=== PATIENT | male | born 1980 | race Caucasian/White ===

== ENCOUNTER 2018-01-17 15:48 | Emergency (ER) | payer BC, SELFPAY ==
[2018-01-17 15:49] VITALS: BP 128/87; PULSE 66; RESP 16; TEMP 36.9; O2SAT 96; BMI 24.3
--- NOTE | 2018-01-17 16:26 | ED.DCSUM_ITS ---
- ER Visit Summary Date of Service: 01/17/18 Chief Complaint: [] Sore throat History of Present Illness: The patient is a 37 M [] complaining of throat discomfort after eating very hot refried beans for which he feels he burned his throat. He reports not seeing a medical provider after the reported injury 6 days ago. Reports he is able to tolerate drinking fluids. Reports for the past several days she has been eating Jell-O and milk and foods that do not irritate his throat. Denies difficulty breathing, taking fluids. Patient is conversational. Denies fevers. Denies neck pain. Physical Examination: [] Afebrile, vital signs stable. Patient is conversational. HEENT reveals moist mucous members without any obvious oropharyngeal erythema or onofre. Remainder of exam is unremarkable. Test Results: [] None. Emergency Department Course and Treatment: [] Follow-up with PCP. Patient provided Decadron orally 1 time in the emergency department, 8 mg. He was encouraged to avoid hot or difficult to swallow foods. Treatment Plan: [] Follow-up with PCP. Avoid irritating or hot foods. Disposition: [] Discharge, stable Impression: [] Pharyngitis This note was generated with [employer] dictation software. It may contain incorrect words, spelling, and punctuation that were not noted in review of the chart prior to signing ED Disposition - Plan for ED Patient: Chief Complaint: Sore Throat Referrals: Derek Jarrell MD [Primary Care Provider] -
--- NOTE | 2018-01-17 16:26 | ED.DEP ---
ED Disposition - Plan for ED Patient: Disposition: Home or Assisted Living Chief Complaint: Sore Throat Instructions: Self-Care for Sore Throats Referrals: Derek Jarrell MD [Primary Care Provider] -
[2018-01-17 16:44] VITALS: BP 128/87; RESP 17
== END 2018-01-17 16:45 | disposition home or self-care (01) ==
PROVIDERS: Emergency Provider Emergency Medicine; Family Provider Family Medicine; PCP Family Medicine
DX: J02.9 Acute pharyngitis, unspecified (principal)
CPT/HCPCS: 99283

== ENCOUNTER 2020-04-08 09:48 | Emergency (ER) | payer BC, SELFPAY ==
[2020-04-08 09:50] VITALS: BP 142/83; PULSE 57; RESP 17; TEMP 36.2; O2SAT 98; BMI 27.8
--- NOTE | 2020-04-08 10:01 | ED.DCSUM_ITS ---
History of Present Illness Informant: Patient - Abdominal Pain/Flank Pain Onset: Today Context: Sudden Onset Timing: Intermittent Quality: Cramping Location: Diffuse Current Severity: Mild Maximum Severity: Severe Worsened by: Nothing Relieved by: Nothing - Nausea/Vomiting/Emesis GI Symptom: Nausea. Negative for: Vomiting - Diarrhea/Melena/Hematochezia GI Symptom: Diarrhea Onset: Today Stool Quality: Loose, Watery Severity: Severe Episodes: 2 Associated Symptoms: Negative for: Dysuria, Frequency, Hematuria, Urgency Narrative: 39-year-old male presents to the emergency department with abdominal pain and diarrhea. Patient woke up about 5 hours ago in the middle of the night with abdominal pain that he describes as bilateral lower cramping and has had 2 episodes of loose watery diarrhea. Nausea but no vomiting. No melena or hematochezia. No fevers. No back pain. Urinating normally. No history of similar symptoms. No sick contacts. No recent antibiotic use or travel. He did eat out last night. He denies any history of gastrointestinal disorders. He thinks his mom has Crohn's disease. Prior similar symptoms: No Recent Illness/Hospitalization: No <Hi Ying - Last Filed: 04/08/20 11:24> <Bubba Goldberg - Last Filed: 04/08/20 12:46> Chief Complaint: Diarrhea Past Medical History Prior records reviewed: Yes Past Medical History: None Surgical History: no surgical history Lives: Alone Smoking Status: Never smoker <Hi Ying - Last Filed: 04/08/20 11:24> <Bubba Goldberg - Last Filed: 04/08/20 12:46> - Allergies and Home Meds Allergies/Adverse Reactions: Allergies No Known Allergies Allergy (Verified 04/08/20 09:49) Primary Care Physician: Alexandra Wise MD [STAFF PHYSICIAN] - 3-5 Days Review of Systems All systems negative except as indicated General: Denies: Chills, Fever, Sweats Eyes: Denies: Visual changes - bilaterally, Diplopia ENT: Denies: Rhinorrhea, Sore throat Cardiovascular: Denies: Chest pain, Palpitations Respiratory: Denies: Dyspnea, Cough, Dyspnea on exertion Gastrointestinal: Reports: Abdominal pain, Nausea, Diarrhea. Denies: Vomiting, Constipation, Melena, Hematochezia Genitourinary: Denies: Dysuria, Hematuria, Frequency Musculoskeletal: Denies: Back pain, Extremity Pain Skin: Denies: Rash, Wounds Neurological: Denies: Headache, Weakness, Numbness <StepanHi - Last Filed: 04/08/20 11:24> Physical Exam Vital Signs/Narrative: Vital Signs Temp Pulse Resp BP Pulse Ox 04/08/20 09:50 97.2 F L 57 L 17 142/83 H 98 Inital Vital Signs reviewed: Yes General: Well nourished, Well developed, No Acute Distress Head: Normocephalic, Atraumatic Eyes: Perrl, EOMI ENT: Moist mucous membranes, No rhinorrhea Neck: Supple, Nontender Cardiovascular: Regular rate, Regular rhythm, No murmurs Respiratory: No distress, CTA bilaterally, Chest nontender Abdomen: Soft, Nontender, Nondistended, Normal bowel sounds Back: Nontender, Normal Inspection Extremities: Nontender, No edema Skin: Normal color, No rash Neurological: Alert, Oriented x3, Cranial nerves II-XII grossly intact, Normal Strength, Normal Sensation Psychological: Normal affect, Normal Mood <Shayna Yingony - Last Filed: 04/08/20 11:24> Vital Signs/Narrative: Vital Signs Temp Pulse Resp BP Pulse Ox 04/08/20 09:50 97.2 F L 57 L 17 142/83 H 98 <Bubba Goldberg - Last Filed: 04/08/20 12:46> Diagnostic/Tx/Re-eval Laboratory Results 04/08/20 04/08/20 10:15 10:15 WBC 6.1 RBC 5.30 Hgb 15.2 Hct 47.4 MCV 89.4 MCH 28.7 MCHC 32.1 RDW Std Deviation 41.2 RDW Coeff of Brenda 12.6 Plt Count 206 MPV 10.3 Immature Gran % (Auto) 0.300 Neut % (Auto) 59.6 Lymph % (Auto) 26.3 Arroyo % (Auto) 9.7 Eos % (Auto) 3.4 Baso % (Auto) 0.7 Absolute Neuts (auto) 3.6 Absolute Lymphs (auto) 1.60 Nucleated RBC % 0 Sodium 139 Potassium 3.8 Chloride 109 H Carbon Dioxide 26.0 Anion Gap 4 L BUN 13 Creatinine 0.81 Estim Creat Clear Calc 114.47 Est GFR (MDRD) Af Amer 137 Est GFR (MDRD) Non-Af 113 BUN/Creatinine Ratio 16.1 Glucose 101 Calcium 8.8 Total Bilirubin 0.30 AST 21 ALT 36 Alkaline Phosphatase 82 Total Protein 7.4 Albumin 3.8 Globulin 3.6 Albumin/Globulin Ratio 1.1 - Medical Decision Making Patient is well-appearing with normal stable vital signs. He was given a liter of fluids, Zofran and Bentyl. CBC and CMP were obtained both are unremarkable. Repeat exam patient feels well. He is able to tolerate by mouth. His repeat abdominal exam is soft and nontender. Will discharge patient home. I will prescribe him both Bentyl and Zofran and have him follow-up with his primary care physician or return back here to the emergency department for worsening symptoms which we discussed. <Hi Ying - Last Filed: 04/08/20 11:24> - Medical Decision Making Attending Note: I evaluated this patient with the midlevel provider. I performed my own face to face evaluation and agree with the above noted history and physical. I agree with the plan of care and the disposition. Patient presented secondary to a diarrheal illness. He has a reassuring physical exam and a nonsurgical abdomen as noted above. Laboratory work-up was negative he had improvement with Bentyl and Zofran, he was discharged with a course of the same. <Bubba Goldberg - Last Filed: 04/08/20 12:46> ED Disposition <Hi Ying - Last Filed: 04/08/20 11:24> <Bubba Goldberg - Last Filed: 04/08/20 12:46> - Plan for ED Patient: Disposition: Home or Assisted Living Diagnosis: Diarrhea, Abdominal pain Instructions: ED Diarrhea Viral Prescriptions: Dicyclomine HCl [Bentyl] 20 mg PO TIDAC #20 cap Transmission Status: Received by [id number] Ondansetron [Zofran Odt] 4 mg PO Q8H PRN PRN #10 tab PRN Reason: Nausea Transmission Status: Received by [id number] Referrals: Alexandra Wise MD [STAFF PHYSICIAN] - 3-5 Days
[2020-04-08] MEDS: Ondansetron 4 MG/2 ML Vial IV (10:15)
[2020-04-08] MEDS: 0.9% Normal Saline 1,000 ML 1000 ML IV (10:15)
[2020-04-08] MEDS: Dicyclomine 10 MG Capsule 20 MG PO (10:15)
[2020-04-08 10:26] LABS: Absolute Neutrophil Count 3.6 X10^3/uL (2.0-7.7); Basophil# 0.04 X10^3/uL; Basophil% 0.7 % (0-1); Eosinophil# 0.21 X10^3/uL; Eosinophils% 3.4 % (0-5); Hematocrit 47.4 % (40-54); Hemoglobin 15.2 g/dL (13.0-16.5); Lymphocyte % 26.3 % (19-41); Mean Corp Hgb Conc 32.1 g/dL (32-36); Mean Corpuscular Hgb 28.7 pg (27.0-32.0); Mean Corpuscular Volume 89.4 fL (80-94); Mean Platelet Vol. 10.3 fl (6.2-12.0); Monocyte# 0.59 X10^3/uL; Monocyte% 9.7 % (0-10); NRBC Flagged by Analyzer 0 % (0-5); Neutrophil # 3.63 X10^3/uL (2.7-7.7); Neutrophil % 59.6 % (47-70); Platelet Count 206 K/mm3 (150-450); RBC Distribution Width CV 12.6 % (11.6-14.6); RBC Distribution Width SD 41.2 fl (35.1-43.9); White Blood Count 6.1 K/mm3 (4.4-11.0)
[2020-04-08 11:09] LABS: ALB/GLOB Ratio 1.1 RATIO (0.9-2.4); AST(SGOT) 21 U/L (15-37); Alanine Aminotransfer ALT/SGPT 36 U/L (16-61); Albumin, Serum 3.8 g/dL (3.2-5.0); Alkaline Phosphatase 82 U/L (45-117); Anion Gap 4 (5-15); BUN 13 mg/dL (7-18); BUN/Creat Ratio 16.1 RATIO (10-20); Calcium,Total 8.8 mg/dL (8.5-10.1); Chloride 109 mmol/L (98-107); Creatinine, Serum 0.81 mg/dL (0.70-1.30); EST Glomerular Filtration Rate 113 mL/min (>60); Est Glom Filt Rate - Afr Amer 137 mL/min (>60); Estimated Creatinine Clearance 114.47 ml/min; Globulin 3.6 g/dL (2.2-4.2); Glucose 101 mg/dL (74-106); Potassium 3.8 mmol/L (3.5-5.1); Protein, Total 7.4 g/dL (6.4-8.2); Sodium Level 139 mmol/L (136-145)
--- NOTE | 2020-04-08 11:36 | ED.RN ---
IV DC'ED, CATHETER INTACT, SMALL GAUZE DRESSING PLACED. DISCHARGE INSTRUCTIONS GIVEN TO AND REVIEWED WITH PATIENT, PATIENT DENIES QUESTIONS OR CONCERNS AND VOICES UNDERSTANDING OF DISCHARGE INSTRUCTIONS. PT AMBULATES OUT OF ROOM WITHOUT DIFFICULTY.
== END 2020-04-08 11:37 | disposition home or self-care (01) ==
PROVIDERS: Emergency Provider Physician Assistant Medical; PCP Internal Medicine
DX: R19.7 Diarrhea, unspecified (principal); R10.9 Unspecified abdominal pain
CPT/HCPCS: 80053; 85025; 96361; 96374; 99284; J7030; J2405

== ENCOUNTER 2023-03-28 20:29 | Emergency (ER) | payer OTHER, SELFPAY ==
[2023-03-28 20:32] VITALS: BP 111/81; PULSE 81; RESP 15; TEMP 37.5; O2SAT 100; BMI 24.1
--- NOTE | 2023-03-28 21:23 | EDS_ITS ---
HPI History of Present Illness Chief Complaint: General Illness Narrative Narrative: Patient is a 42-year-old male who is presenting with flulike symptoms yesterday and today. Patient also had 3 weeks of flulike symptoms starting at the end of January into the first couple weeks of February. Patient has seen in the urgent care several times when he was sick for 3 weeks at the end of January into February. Patient had stool cultures done at that time. Patient was feeling better in the past week, then last evening patient started getting flulike symptoms again. Patient had some sore throat, myalgia, arthralgia, lightheaded, dizzy. Patient was feeling better this afternoon and then this evening symptoms got worse again so he came into the ER for evaluation. Patient has not seen his PCP for any of these illnesses in the past month. Patient's had no lab testing, no other testing except stool cultures when he had loose stool for 3 weeks at the end of January in the beginning of February. Patient had a friend drop him off in the ER. No other acute complaints at this time. 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 No recent traveling or trauma. PFSH PFSH Home Medications dicyclomine 10 mg capsule 20 mg (2 x 10 mg) PO TIDAC #20 caps 04/08/20 [Rx Last Taken Unknown] ondansetron 4 mg disintegrating tablet 4 mg PO Q8H PRN PRN Nausea #10 tabs 04/08/20 [Rx Last Taken Unknown] Allergy/AdvReac Type Severity Reaction Status Date / Time No Known Allergies Allergy Verified 03/28/23 20:38 Social History Smoking Status: Never smoker ROS ROS ED ROS Narrative REVIEW OF SYSTEMS: Unless otherwise stated in this report the patient's positive and negative responses for review of systems for constitutional, eyes, ENT, cardiovascular, respiratory, gastrointestinal, neurological, , musculoskeletal, and integument systems and related systems to the presenting problem are either stated in the history of present illness or were not pertinent or were negative for the symptoms and/or complaints related to the presenting medical problem. EXAM Physical Exam Narrative Exam Narrative: Vital signs reviewed and patient is not hypoxic. General: The patient appears well and in no apparent distress. Patient is resting comfortably on cart. Not toxic, lethargic, or listless. Skin: Warm, dry, no pallor noted. There is no rash noted. Head: Normocephalic, atraumatic Eye: Normal conjunctiva, no drainage, EOMI. PERRL. Ears, Nose, Mouth, and Throat: oral mucosa is moist. Nares patent. Mouth without vesicles. Patient does have clear drainage noted to the posterior pharynx, patient has mild cobblestoning as well, no posterior unilateral swelling, no petechiae, exudate, no signs of Jaime angina. Cardiovascular: Regular Rate and Rhythm, no murmurs, gallops, or rubs Respiratory: Patient is in no distress, no accessory muscle use, lungs are clear to auscultation, no wheezing, rales or rhonchi Back: non-tender, no CVA tenderness bilaterally to percussion. NO CTLS midline or paraspinal tenderness to palpation. GI: Soft, no tenderness to palpation, no masses appreciated. No rebound, guarding, or rigidity noted. Musculoskeletal: The patient has full range of motion of all extremities and joints with no difficulty. Patient has no motor, no sensory deficits. Neurological: A&O x4, normal speech, no focal neurological deficits. Psychiatric: Cooperative Const Vital Signs: 03/28/23 20:32 Temperature 99.5 F H Temperature Source Temporal Pulse Rate 81 Respiratory Rate 15 Blood Pressure 111/81 H Blood Pressure Mean 91 Pulse Ox 100 Oxygen Delivery Method Room Air MDM MDM MDM Narrative Medical decision making narrative: Patient was given 1 L of IV fluids. Patient feels better after IV fluids. Patient does have ketones in his urine. Patient's rapid strep, flu, COVID are negative. Lab work shows no other significant changes. Patient was given potassium to drink prior to discharge as well. Patient was educated on using Tylenol Motrin as needed for myalgia and arthralgia. Patient was educated on using DayQuil, NyQuil and Flonase to help with sinus congestion and pharyngitis. Patient increase cold liquids. Patient does have prescription for dicyclomine and Zofran to use at home. Patient understands importance of increasing liquids, especially Gatorade and Powerade at home. Patient will use multivitami ns daily. Patient will follow-up with PCP. No questions at discharge. Lab Data Attestation: I reviewed the patient's lab results. Labs: Laboratory Results - last 24 hr 03/28/23 03/28/23 21:25 21:40 WBC 5.6 RBC 5.05 Hgb 15.1 Hct 43.8 MCV 86.7 MCH 29.9 MCHC 34.5 RDW Std Deviation 39.9 RDW Coeff of Brenda 12.7 Plt Count 151 MPV 10.7 Immature Gran % (Auto) 0.200 Neut % (Auto) 85.7 H Lymph % (Auto) 4.1 L [place] % (Auto) 8.9 Eos % (Auto) 0.9 Baso % (Auto) 0.2 Absolute Neuts (auto) 4.8 Absolute Lymphs (auto) 0.23 L Nucleated RBC % 0 Differential Comment SCANNED Sodium 137 Potassium 3.2 L Chloride 104 Carbon Dioxide 25.0 Anion Gap 8 BUN 11 Creatinine 0.76 Estim Creat Clear Calc 118.38 Est GFR (MDRD) Af Amer 143 Est GFR (MDRD) Non-Af 119 BUN/Creatinine Ratio 14.4 Glucose 95 Calcium 9.3 Total Bilirubin 0.50 AST 10 L ALT 16 Alkaline Phosphatase 72 Total Protein 7.4 Albumin 4.0 Globulin 3.4 Albumin/Globulin Ratio 1.2 Lipase 22 Urine Color Yellow Urine Clarity Clear Urine pH 8.0 Ur Specific Whiting 1.015 Urine Protein 15 H Urine Glucose (UA) Normal Urine Ketones 150 A* Urine Occult Blood Negative Urine Nitrite Negative Urine Bilirubin Negative Urine Urobilinogen Normal Ur Leukocyte Esterase Negative Urine RBC 0-5 SEEN Urine WBC 0-5 SEEN Ur Squamous Epith Cells 0 SEEN Urine Bacteria RARE Urine Mucus 0 SEEN Discharge Plan Triage Chief Complaint: General Illness ED Provider: Joey Perez Dx/Rx/DC Orders Clinical Impression: Flu-like symptoms, Mild dehydration, Pharyngitis, Hypokalemia Instructions: Hypokalemia Dc, ED Dehydration (Adult), ED URI, Viral, No Abx (Adult) Prescriptions: No Action ondansetron 4 MG tablet 4 mg PO Q8H PRN PRN (Reason: Nausea) Qty: 10 0RF dicyclomine 10 MG capsule 20 mg PO TIDAC Qty: 20 0RF Primary Care Provider: Kya Velasquez Referrals: Kya Velasquez MD [Primary Care Provider] - Activity Restrictions/Additional Instructions: Increase fluids at home. Start taking multivitamin daily. Follow-up with PCP. Use Zofran as needed to help increase fluids at home. Disposition Disposition: Home, Self Care
[2023-03-28] MEDS: 0.9% Normal Saline 1,000 ML 1000 ML IV (21:39)
[2023-03-28 21:49] LABS: Mucous, Urine 0 SEEN /hpf (<or=2+); Squamous Epithelial Cells - UA 0 SEEN /hpf (0-5)
[2023-03-28 21:52] LABS: Absolute Lymphocyte Count 0.23 X10^3/uL (0.83-4.51); Absolute Neutrophil Count 4.8 X10^3/uL (2.0-7.7); Basophil# 0.01 X10^3/uL; Basophil% 0.2 % (0-1); Eosinophil# 0.05 X10^3/uL; Eosinophils% 0.9 % (0-5); Hematocrit 43.8 % (40-54); Hemoglobin 15.1 g/dL (13.0-16.5); Lymphocyte # 0.23 X10^3/ul (0.83-4.51); Lymphocyte % 4.1 % (19-41); Mean Corp Hgb Conc 34.5 g/dL (32-36); Mean Corpuscular Hgb 29.9 pg (27.0-32.0); Mean Corpuscular Volume 86.7 fL (80-94); Mean Platelet Vol. 10.7 fl (6.2-12.0); Monocyte% 8.9 % (0-10); NRBC Flagged by Analyzer 0 % (0-5); Neutrophil # 4.82 X10^3/uL (2.7-7.7); Neutrophil % 85.7 % (47-70); POSITIVE DIFFERENTIAL YES; Platelet Count 151 K/mm3 (150-450); RBC Distribution Width CV 12.7 % (11.6-14.6); RBC Distribution Width SD 39.9 fl (35.1-43.9); Red Blood Count 5.05 M/mm3 (4.6-6.2); White Blood Count 5.6 K/mm3 (4.4-11.0)
[2023-03-28 22:01] LABS: Color, Urine Yellow (Yellow); Glucose, Dipstick Normal (Normal); Leukocyte Esterase-Dipstick Negative /ul (Negative); Nitrite-Dipstick Negative (Negative); Occult Blood-Urine Negative /ul (Negative); Protein-Dipstick 15 mg/dl (Negative); Specific Gravity, Urine 1.015 (1.002-1.030); Urine Bilirubin Dipstick Negative (Negative); Urine Clarity Clear (Clear); Urine Urobilinogen Normal (Normal)
[2023-03-28 22:10] LABS: ALB/GLOB Ratio 1.2 RATIO (0.9-2.4); AST(SGOT) 10 U/L (15-37); Alanine Aminotransfer ALT/SGPT 16 U/L (16-61); Alkaline Phosphatase 72 U/L (45-117); Anion Gap 8 (5-15); BUN 11 mg/dL (7-18); BUN/Creat Ratio 14.4 RATIO (10-20); Calcium,Total 9.3 mg/dL (8.5-10.1); Chloride 104 mmol/L (98-107); Creatinine, Serum 0.76 mg/dL (0.70-1.30); EST Glomerular Filtration Rate 119 mL/min (>60); Est Glom Filt Rate - Afr Amer 143 mL/min (>60); Estimated Creatinine Clearance 118.38 ml/min; Globulin 3.4 g/dL (2.2-4.2); Glucose 95 mg/dL (74-106); Lipase 22 U/L (13-75); Potassium 3.2 mmol/L (3.5-5.1); Protein, Total 7.4 g/dL (6.4-8.2); Sodium Level 137 mmol/L (136-145)
[2023-03-28 22:13] LABS: Differential Indicated SCAN CRITERIA MET
[2023-03-28 22:16] LABS: Ketone-Dipstick 150 mg/dl (Negative)
[2023-03-28 22:36] LABS: Bacteria RARE /hpf (None Seen); Red Blood Cells-Urine 0-5 SEEN /hpf (0-5); White Blood Cells 0-5 SEEN /hpf (0-5)
[2023-03-28 22:58] LABS: Differential Comment SCANNED
[2023-03-28] MEDS: Potassium Chloride Oral Soln 20 MEQ/15 ML UDC 40 MEQ PO (23:25)
[2023-03-28 23:30] VITALS: BP 122/71; PULSE 88; RESP 20; O2SAT 99
== END 2023-03-28 23:31 | disposition home or self-care (01) ==
PROVIDERS: Emergency Provider Emergency Medicine; PCP Internal Medicine; Visit Provider Emergency Medicine
DX: E86.0 Dehydration (principal); J02.9 Acute pharyngitis, unspecified; E87.6 Hypokalemia
CPT/HCPCS: 80053; 81001; 83690; 85025; 87428; 87880; 96360; 96361; 99284; J7030; A4216